=== PATIENT | female | born 1980 | race African-American/Black ===

== ENCOUNTER 2016-08-13 20:27 | Observation (INO) ==
[2016-08-13] MEDS ORDERED: BENADRYL IV ONE (20:54)
[2016-08-13] MEDS ORDERED: DECADRON IV ONE (20:54)
[2016-08-13] MEDS ORDERED: PEPCID IV ONE (20:54)
[2016-08-13] MEDS ORDERED: DUONEB (A & A) INH ONE (20:54)
[2016-08-13] MEDS ORDERED: SODIUM CHLORIDE 0.9% INJ ONE (20:54)
--- NOTE | 2016-08-13 20:55 | PROVIDER DOCUMENTATION ---
HPI-General Adult - General Chief Complaint: Allergic Reaction Stated Complaint: ALLERGIC REACTION Time Seen by Provider: 08/13/16 20:38 Source: patient Allergies/Adverse Reactions: Patient Allergies Allergy/AdvReac Type Severity Reaction Status Date / Time No Known Allergies Allergy Verified 06/25/12 05:54 Home Medications: Home Medication List Medication Instructions Recorded Confirmed Last Taken Type Hydrochlorothiazide DAILY 07/26/12 10/05/13 07/25/12 09:00 History Amoxicillin 500 mg PO BID #14 capsule 10/05/13 Unknown Rx Ciprofloxacin 0.3% Ophth Soln 2 drop LEFT EAR TID #1 bottle 10/05/13 Unknown Rx [Ciloxan Ophth Soln] - History of Present Illness -Gen Adult Nature of Presenting Problems: Pt is a 36 y/o F c chief complaint of swelling of her upper and lower lips that started approx 4 hrs prior to arrival at the ER. Pt states she has taken 100mg of Benadryl PO but this has not helped the swelling. Pt denies any swelling of tongue or difficulty swallowing or breathing. Pt recently started taking Welbutrin to quit smoking and tx depression. On arrival, pt is in minimal distress and has very swollen lips. Review of Systems - Adult - REVIEW OF SYSTEMS - ADULT Constitutional: reports: no symptoms reported. denies: chills, fatique Eyes: reports: no symptoms reported. denies: blurred vision, double vision Ears, Nose, Mouth & Throat: reports: see HPI, mouth swelling. denies: ear pain , nose pain, hoarseness, throat pain, throat swelling Cardiovascular: reports: no symptoms reported. denies: chest pain, irregular heart rate Respiratory: reports: no symptoms reported. denies: cough, shortness of breath , wheezing Gastrointestinal: reports: no symptoms reported. denies: abdominal pain, nausea Genitourinary: reports: no symptoms reported. denies: dysuria, hematuria Musculoskeletal: reports: no symptoms reported. denies: bone pain, joint pain, joint swelling Integumentary: reports: no symptoms reported. denies: itching, rash Neurological: reports: no symptoms reported. denies: numbness, paresthesia Psychiatric: reports: no symptoms reported. denies: anxiety, emotional problems Endocrine: reports: no symptoms reported. denies: cold intolerance, heat intolerance Hematologic/Lymphatic: reports: no symptoms reported Allergic/Immunologic: reports: no symptoms reported. denies: allergic reactions , food allergy All Other Systems: Reviewed and Negative Past History - Adult - PAST MEDICAL HISTORY-ADULT Review of Records: reports: Old Records Reviewed, Nursing Assessment Review, Medications Reviewed, Social history reviewed & non-contributory. Major Childhood Illnesses: reports: denies history Cardiovascular: reports: HTN Respiratory: reports: denies history Gastrointestinal: reports: denies history Obstetrical/Gynecological: reports: denies history Genitourinary: reports: denies history Musculoskeletal: reports: denies history Neurological: reports: denies history Psychiatric: reports: depression Endocrine/Immune: reports: denies history Other Conditions: reports: denies history - PRIOR SURGERIES/PROCEDURES Surgical/Procedure History: reports: colonoscopy, BTL - IMMUNIZATION STATUS Childhood Immunizations: See Nurse Assessment Flu Vaccine: See Nurse Assessment - FAMILY HISTORY Family History: reviewed, not pertinent - SOCIAL HISTORY Smoking: quit greater than 1 year, cigarettes Substance Use: none/never Alcohol Use Frequency: never Living Situation: family Physical Exam-General - PHYSICAL EXAM-ADULT Initial Vital Signs Reviewed: Yes - CONSTITUTIONAL General Appearance: appears well, alert, no apparent distress - EYES Eyes: PERRL/EOMI, pink conjunctivae - HEAD, EARS, NOSE, MOUTH & THROAT HENMT: normocephalic/atraumatic, moist mucous membranes, other (angioedema upper and lower lips) - NECK Neck: normal inspection - RESPIRATORY Respiratory: chest non-tender, lungs clear, normal breath sounds - CARDIOVASCULAR Cardiovascular: normal peripheral pulses, regular rate, rhythm - GASTROINTESTINAL (ABDOMEN) Abdominal Exam: normal bowel sounds, non tender, soft - LYMPHATIC Lymphatic: no adenopathy - MUSCULOSKELETAL Back Exam: normal inspection, no CVA tenderness, no vertebral tenderness Extremity: normal range of motion, non-tender, normal inspection - SKIN Integumentary: normal color, normal turgor, warm/dry - NEUROLOGIC Neurologic: grossly normal, no motor/sensory deficits - PSYCHIATRIC Psych/Mental Status: normal mood/affect, normal thought content, normal thought process, oriented x 3 Progress - PLAN OF CARE/RESULTS Progress/Plan/Lab Results: Vital Signs - 8 hr 08/13/16 20:43 Temperature 97.5 F L Pulse Rate 76 Respiratory Rate 18 Blood Pressure 115/76 O2 Sat by Pulse Oximetry 100 Orders Category Date Time Status Saline Loc NOW Care 08/13/16 20:54 Ordered CBC WITH ELECTRONIC DIFF [HEME] Stat Lab 08/13/16 20:54 Ordered COMPREHENSIVE METABOLIC PANEL [CHEM] Stat Lab 08/13/16 20:54 Ordered Albuterol 2.5MG/Ipratrop 0.5MG [Duoneb (A & A)] Med 08/13/16 20:54 Once 6 ml INH NOW ONE Dexamethasone [Decadron] Med 08/13/16 20:54 Once 10 mg IV NOW ONE Diphenhydramine [Benadryl] Med 08/13/16 20:54 Once 25 mg IV NOW ONE Famotidine [Pepcid] Med 08/13/16 20:54 Once 20 mg IV NOW ONE Sodium Chloride 0.9% Med 08/13/16 20:54 Once 5 - 10 ml INJ NOW ONE Aerosol Treatments Routine Oth 08/13/16 20:55 Ordered Aerosol Treatments Stat Oth 08/13/16 20:55 Ordered Result Diagrams: 08/13/16 20:58 08/13/16 20:58 - REASSESSMENT Reassessment #1 Time Reassessed: 22:03 (PT CONTINUES TO HAVE SIGNIFICANT ANGIOEDEMA. DISCUSSED C DR. ARREGUIN WHO AGREED C ADMISSION. HOSPITALIST PAGED. ) - CONSULTS/PCP/HOSPITALIST Notification #1 *Consult/PCP/Hospitalist*: Dr. Morales (Hospitalist) Time Discussed: 22:53 Reason/Comments: Will admit to [facility]. Please write transition orders. Departure - Departure Time of Disposition Decision: 22:03 DIAGNOSIS: Angioedema Qualifiers: Encounter type: initial encounter Qualified Code(s): T78.3XXA - Angioneurotic edema, initial encounter Disposition: ADMITTED INPATIENT 09 Certified Medical Emergency: Emergent Condition: Stable Referrals and Follow-Ups: Carol Ann Rasmussen MD [Primary Care Provider] - Attestation - Physician/ QUAN Attestation Patient care was provided by Advanced Practice Provider:: Yes Advanced Practice Provider:: Rusty Mccullough Advanced Practice Provider documentation review:: The Mid-level provider documentation, treatment plan and medical decision making was reviewed by the physician who agrees with all treatment and medical decision making by the MLP.
[2016-08-13 21:04] LABS: MANUAL DIFF NEEDED? NO
[2016-08-13 21:13] LABS: BASO% 0.4 % (0.0-0.8); EOS# 0.27 X1000 (0.0-0.7); EOS% 5.3 % (0.0-10.0); HEMATOCRIT 39.8 % (37.0-47.0); HEMOGLOBIN 12.9 g/dL (12.0-16.0); IMM GRAN# 0.01 X1000 (0.0-0.04); IMM GRAN% 0.2 % (0.0-0.5); LYMPH% 39.1 % (20.5-51.1); MCH 28.4 PG (27-31); MCHC 32.4 g/dL (33-37); MCV 87.7 FL (81-99); MONO% 7.8 % (1.7-9.3); MPV 9.4 FL (7.4-10.4); NEUT% 47.2 % (42.2-75.2); PLT 242 X1000 (130-400); RBC 4.54 XMIL (4.2-5.4)
[2016-08-13 21:28] LABS: AGAP 11; ALBUMIN 4.2 g/dL (3.5-5.0); ALKALINE PHOSPHATASE 79 U/L (32-104); BUN 11 mg/dL (8-22); CALCIUM 9.2 mg/dL (8.8-10.2); CHLORIDE 98 mmol/L (98-107); COSMO 268; GOT 17 U/L (10-30); GPT 16 U/L (10-36); POTASSIUM 3.2 mmol/L (3.5-5.1); SODIUM 135 mmol/L (136-145); TCO2 27 mmol/L (25-35); TOTAL PROTEIN 7.8 g/dL (6.3-8.3)
[2016-08-13] MEDS ORDERED: NS 1,000 ML IV ONE (22:55)
[2016-08-14] MEDS ORDERED: BENADRYL IV PRN (00:59)
[2016-08-14] MEDS ORDERED: 1/2 NS 1,000 ML IV SCH (00:59)
[2016-08-14 07:35] LABS: MANUAL DIFF NEEDED? NO
[2016-08-14 07:36] LABS: HEMATOCRIT 36.5 % (37.0-47.0); IMM GRAN# 0.01 X1000 (0.0-0.04); IMM GRAN% 0.2 % (0.0-0.5); LYMPH# 0.58 X1000 (1.2-3.4); LYMPH% 11.6 % (20.5-51.1); MCH 28.8 PG (27-31); MCHC 32.9 g/dL (33-37); MCV 87.5 FL (81-99); MONO# 0.16 X1000 (0.11-0.59); MONO% 3.2 % (1.7-9.3); MPV 9.3 FL (7.4-10.4); PLT 219 X1000 (130-400); RBC 4.17 XMIL (4.2-5.4)
[2016-08-14 08:20] LABS: AGAP 12; BUN 12 mg/dL (8-22); CALCIUM 8.9 mg/dL (8.8-10.2); CHLORIDE 99 mmol/L (98-107); COSMO 280; POTASSIUM 3.3 mmol/L (3.5-5.1); SODIUM 134 mmol/L (136-145); TCO2 23 mmol/L (25-35)
[2016-08-14] MEDS ORDERED: SOLU-MEDROL IV SCH (09:00)
[2016-08-14 11:50] VITALS: BP 130/78
[2016-08-14] MEDS ORDERED: MEDROL DOSEPAK PO SCH (12:00)
[2016-08-14] MEDS ORDERED: MEDROL PO SCH (12:00)
--- NOTE | 2016-08-14 17:58 | HISTORY AND PHYSICAL ---
CHIEF COMPLAINT: Allergic reaction. HISTORY OF PRESENT ILLNESS: This is a 36-year-old female with a past medical history of hypertension and tobacco abuse, came to the emergency department with a chief complaint of upper and lower lip swelling that happened about 4 hours prior to arrival at the emergency department. The patient states that she started taking a new medication about 3 weeks ago, bupropion, and this treatment is to help her quit smoking. She states that after 1 week taking the medication she started having itchiness mostly when she takes the second dose of the day, but yesterday she started having numbness and edema at the level of the upper and lower lip. Otherwise, no respiratory failure and no shortness of breath. This patient was evaluated in the emergency department and they transferred this patient to the floor with telemetry to continue observation and treatment. Today this patient was feeling much better so this is why I decided to discharge this patient with strict follow up by her primary care physician and she will take steroids for a short period of time. The bupropion has been stopped. REVIEW OF SYSTEMS: The 14 point of the review of system were reviewed. All of them negative except as per HPI. PAST MEDICAL HISTORY: Hypertension, tobacco abuse. PAST SURGICAL HISTORY: Tubal ligation 5 years ago. ALLERGIES: She denies previous allergies. TRANSFUSIONS: She denies transfusions. PHYSICAL EXAMINATION: VITAL SIGNS: Upon admission, temperature 98.5 degrees, pulse 101, respiratory rate 18, blood pressure 111/61, oxygen saturation 96 on room air. HEENT: Head normocephalic. No trauma. PERRLA. Upper and lower lip swelling. NECK: Supple. No JVD. No masses. Central trachea. CHEST: Clear to auscultation. No wheezing. No rales. ABDOMEN: Soft, nontender, nondistended. No hepatosplenomegaly. CARDIOVASCULAR: RRR. No murmurs. EXTREMITIES: No edema. No clubbing. No cyanosis. NEUROLOGICAL: The patient is alert and oriented x3. No focal neurological deficits. LABORATORY: Upon admission, WBC 5.1, hemoglobin 12.9, hematocrit 39.8, platelets 242,000. Sodium 135, potassium 3.2, chloride 98, bicarbonate 27, BUN 11, glucose 74. ASSESSMENT AND PLAN: 1. Angioedema. Apparently this patient took Benadryl before coming to the emergency department and that helped this patient is a little bit. Then she received steroids and she was feeling much better today. 2. Hypertension, stable. Continue with the same management. 3. Tobacco abuse. This patient was taking bupropion but now it has to be stopped because of an allergic reaction. She will talk to her primary care doctor to get another kind of treatment and monitoring. cc: Oneil Jacobs MD
--- NOTE | 2016-08-14 21:08 | DISCHARGE SUMMARY ---
ADMISSION DATE: 08/13/2016 DISCHARGE DATE: 08/14/2016 DISCHARGE DIAGNOSES: 1. Angioedema. 2. Hypertension. 3. Tobacco abuse. HOSPITAL COURSE: A 36-year-old female with a past medical history of high blood pressure and tobacco abuse, came to the emergency department with a chief complaint of upper and lower lip swelling. As per the patient, she started taking bupropion 3 weeks ago and she started feeling some kind of itchiness after 1 week of starting this medication, but yesterday she noticed swelling at the level of the upper and lower lips. This patient states also that when she takes the 1st dose of treatment in the morning, nothing happened, but after taking the 2nd dose the symptoms are there and sometimes she needs to take Benadryl. She came to the emergency department yesterday and after examination we kept this patient for 1 night to be sure that this patient did not have any respiratory distress. This patient was doing fine that morning. This is why we decided to discharge this patient with strict followup by her primary care physician. We already stopped the bupropion. Upon discharge, the patient was in a stable medical condition, tolerating p.o. and ambulating. DISCHARGE EXAMINATION: Vital Signs: Temperature 98.3 degrees, pulse 85, respiratory rate 18, blood pressure 130/70. HEENT: Head normocephalic. No trauma. PERRLA, upper and lower lip swelling. Neck: Supple. No JVD. No masses. Central trachea. Chest: Clear to auscultation. No wheezing. No rales. Cardiovascular: Regular rhythm and rate. No murmurs. Abdomen: Soft, nontender, nondistended. No hepatosplenomegaly. Extremities: No edema. No clubbing. No cyanosis. Neurological: The patient is alert and oriented x3. No focal neurological deficits. LABORATORY: WBC 5, hemoglobin 12, hematocrit 36.5, platelets 219,000. Sodium 134, potassium 3.3, chloride 99, bicarbonate 23, glucose 315, calcium 8.9. DISCHARGE MEDICATION: She will continue with her home medications, Medrol dose pack, hydrochlorothiazide and propranolol. TIME DISCHARGING THIS PATIENT: 35 minutes. cc: Oneil Jacobs MD
== END 2016-08-14 14:25 | disposition home or self-care (01) ==
LOC: P.ED 20:27 → INTOOBSV 23:20 → P.MEDSURG 23:20
PROVIDERS: ATTEND Internal Medicine